=== PATIENT | male | born 1985 | race African-American/Black ===

== ENCOUNTER 2020-11-26 09:20 | Inpatient (IN) | payer MEDICAID, OTHER ==
[~2020-11-26] VITALS: Ht 165.1 cm; Wt 75.7 kg
[2020-11-26 10:45] LABS: BASOPHILS % 0.4 % (0.0-2.0); EOSINOPHILS % 0.1 % (0.0-5.0); HEMATOCRIT. 43.4 % (42.0-52.0); HEMOGLOBIN. 14.1 g/dL (14.0-18.0); LYMPHOCYTES % 15.2 % (20.0-50.0); MEAN CORPUSCULAR HEMOGLOBIN 35.9 pg (28.0-32.0); MEAN CORPUSCULAR VOLUME 110.2 fL (80.0-94.0); MEAN PLATELET VOLUME 8.8 fl (7.4-10.4); NEUTROPHILS % 78.3 % (40.0-76.0); PLATELET 252 x1000/uL (130-400); RED BLOOD CELL COUNT 3.94 mill/uL (4.7-6.1); RED CELL DISTRIBUTION WIDTH 14.7 % (11.6-14.6)
[2020-11-26] MEDS ORDERED: SODIUM CHLORIDE 0.9% 1,000 ML IV ONE (10:45)
[2020-11-26 10:46] LABS: CHLORIDE 105 mEq/L (98-107)
[2020-11-26 10:50] LABS: ETHANOL BLOOD < 10 mg/dL
[2020-11-26 11:38] LABS: PLATELET ESTIMATE NORMAL
[2020-11-26 12:18] LABS: CLARITY URINE CLEAR (CLEAR); COLOR URINE DARK YELLOW (YELLOW); KETONES URINE NEGATIVE (NEGATIVE); LEUKOCYTE ESTERASE URINE TRACE (NEGATIVE); NITRITE URINE NEGATIVE (NEGATIVE); OCCULT BLOOD URINE TRACE (NEGATIVE); PH URINE 5.5 (4.5-8.0); PROTEIN URINE 2+ (NEGATIVE); SPECIFIC GRAVITY URINE 1.025 (1.005-1.030)
[2020-11-26 12:28] LABS: INR 1.3; PARTIAL THROMBOPLASTIN TIME 24.8 sec (23.4-31.0)
[2020-11-26 12:36] LABS: *AMPHETAMINES SCREEN URINE NEGATIVE (NEGATIVE); *BARBITURATES SCREEN URINE NEGATIVE (NEGATIVE); *BENZODIAZEPINES SCREEN URINE NEGATIVE (NEGATIVE); *COCAINE SCREEN URINE PRESUMTIVE POSITIVE (NEGATIVE); METHADONE URINE SCREEN NEGATIVE (NEGATIVE); OPIATES URINE SCREEN NEGATIVE (NEGATIVE)
[2020-11-26 12:37] LABS: CANNABINOID URINE SCREEN PRESUMTIVE POSITIVE (NEGATIVE); PHENCYCLIDINE URINE SCREEN NEGATIVE (NEGATIVE)
[2020-11-26] MEDS ORDERED: FUROSEMIDE 20MG/2ML VIAL IVP ONE (13:00)
[2020-11-26] MEDS ORDERED: IOHEXOL-350 100 ML BOTTLE ONE (16:50)
[2020-11-26] MEDS ORDERED: CLONIDINE 0.1MG TABLET PO PRN (17:15)
[2020-11-26] MEDS ORDERED: ONDANSETRON HCL 4MG/2ML INJ IV PRN (17:15)
[2020-11-26] MEDS ORDERED: ACETAMINOPHEN 325MG TABLET PO PRN (17:15)
[2020-11-26] MEDS ORDERED: IPRATROPIUM/ALBUTEROL 0.5-3(2.5)MG/3ML NEB HHN PRN (17:15)
[2020-11-26] MEDS: ENOXAPARIN 40MG/0.4ML SYR SUBCUT SCH (17:26)
[2020-11-26] MEDS: DIPHENHYDRAMINE 50MG/ML VIAL IV PRN (23:06)
[2020-11-27] VITALS (11 sets, daily range): BP systolic 103–130; BP diastolic 66–101
[2020-11-27 06:27] LABS: BASOPHILS % 0.3 % (0.0-2.0); HEMATOCRIT. 37.6 % (42.0-52.0); HEMOGLOBIN. 12.5 g/dL (14.0-18.0); LYMPHOCYTES % 16.5 % (20.0-50.0); MEAN CORPUSCULAR HEMOGLOBIN 36.7 pg (28.0-32.0); MEAN PLATELET VOLUME 9.7 fl (7.4-10.4); MONOCYTES % 6.3 % (2.0-8.0); NEUTROPHILS % 76.9 % (40.0-76.0); PLATELET 208 x1000/uL (130-400); RED BLOOD CELL COUNT 3.42 mill/uL (4.7-6.1); RED CELL DISTRIBUTION WIDTH 14.4 % (11.6-14.6)
[2020-11-27 06:32] LABS: CHLORIDE 104 mEq/L (98-107)
[2020-11-27 06:43] LABS: LDL CHOLESTEROL 52 mg/dL (5-100)
[2020-11-27 06:44] LABS: HDL CHOLESTEROL 34 mg/dL (40-59)
[2020-11-27] MEDS ORDERED: PNEUMOCOCCAL 23-VAL P-SAC VAC 0.5 ML IM ONE (08:00)
[2020-11-27] MEDS: FUROSEMIDE 40MG/4ML VIAL IV SCH (08:48)
[2020-11-27] MEDS: DILTIAZEM HCL 30MG TABLET PO SCH ×3 (11:17→23:13)
[2020-11-27] MEDS: ASPIRIN 81MG EC TABLET PO SCH (11:17)
[2020-11-27] MEDS: NYSTATIN POWDER 15GM TOP SCH ×2 (15:56→23:18)
[2020-11-27] MEDS: ENOXAPARIN 40MG/0.4ML SYR SUBCUT SCH (17:19)
[2020-11-28] VITALS (12 sets, daily range): BP systolic 100–133; BP diastolic 67–100
[2020-11-28 05:11] LABS: NEISSERIA GONORRHOEAE NAA Negative (Negative)
[2020-11-28] MEDS: DILTIAZEM HCL 30MG TABLET PO SCH ×4 (06:22→23:29)
[2020-11-28 07:11] LABS: BASOPHILS % 0.2 % (0.0-2.0); EOSINOPHILS % 0.4 % (0.0-5.0); HEMATOCRIT. 40.8 % (42.0-52.0); HEMOGLOBIN. 13.6 g/dL (14.0-18.0); LYMPHOCYTES % 17.9 % (20.0-50.0); MEAN CORPUSCULAR HEMOGLOBIN 36.6 pg (28.0-32.0); MEAN CORPUSCULAR VOLUME 109.9 fL (80.0-94.0); MEAN PLATELET VOLUME 9.6 fl (7.4-10.4); MONOCYTES % 7.7 % (2.0-8.0); NEUTROPHILS % 73.8 % (40.0-76.0); PLATELET 212 x1000/uL (130-400); RED BLOOD CELL COUNT 3.71 mill/uL (4.7-6.1); RED CELL DISTRIBUTION WIDTH 14.6 % (11.6-14.6)
[2020-11-28 07:50] LABS: CHLORIDE 102 mEq/L (98-107)
[2020-11-28] MEDS: ASPIRIN 81MG EC TABLET PO SCH (08:29)
[2020-11-28] MEDS: FUROSEMIDE 40MG/4ML VIAL IV SCH (08:29)
[2020-11-28] MEDS: NYSTATIN POWDER 15GM TOP SCH ×3 (08:30→17:00)
[2020-11-28] MEDS: LISINOPRIL 2.5MG TABLET PO SCH (14:03)
[2020-11-28] MEDS: ENOXAPARIN 40MG/0.4ML SYR SUBCUT SCH (18:26)
[2020-11-28] MEDS: CARVEDILOL 3.125 MG TABLET PO SCH (21:14)
[2020-11-28] MEDS: GUAIFENESIN 200MG/10ML SUGAR FREE UDC PO SCH (23:30)
[2020-11-29] VITALS (10 sets, daily range): BP systolic 90–116; BP diastolic 58–84
[2020-11-29 05:53] LABS: BASOPHILS % 0.3 % (0.0-2.0); EOSINOPHILS % 0.2 % (0.0-5.0); HEMATOCRIT. 38.9 % (42.0-52.0); HEMOGLOBIN. 12.8 g/dL (14.0-18.0); LYMPHOCYTES % 14.9 % (20.0-50.0); MEAN CORPUSCULAR HEMOGLOBIN 36.1 pg (28.0-32.0); MEAN CORPUSCULAR VOLUME 109.4 fL (80.0-94.0); MEAN PLATELET VOLUME 9.8 fl (7.4-10.4); MONOCYTES % 5.4 % (2.0-8.0); NEUTROPHILS % 79.2 % (40.0-76.0); PLATELET 227 x1000/uL (130-400); RED BLOOD CELL COUNT 3.56 mill/uL (4.7-6.1); RED CELL DISTRIBUTION WIDTH 14.4 % (11.6-14.6)
[2020-11-29] MEDS: GUAIFENESIN 200MG/10ML SUGAR FREE UDC PO SCH ×4 (06:04→23:31)
[2020-11-29] MEDS: DILTIAZEM HCL 30MG TABLET PO SCH ×4 (06:04→23:35)
[2020-11-29 06:16] LABS: CHLORIDE 102 mEq/L (98-107)
[2020-11-29] MEDS: CARVEDILOL 3.125 MG TABLET PO SCH ×2 (08:26→21:02)
[2020-11-29] MEDS: LISINOPRIL 2.5MG TABLET PO SCH (08:26)
[2020-11-29] MEDS: FUROSEMIDE 40MG/4ML VIAL IV SCH (08:26)
[2020-11-29] MEDS: ASPIRIN 81MG EC TABLET PO SCH (08:27)
[2020-11-29] MEDS: NYSTATIN POWDER 15GM TOP SCH ×3 (11:46→17:50)
[2020-11-29] MEDS: ENOXAPARIN 40MG/0.4ML SYR SUBCUT SCH (17:51)
[2020-11-30] VITALS: BP 92/56
[2020-11-30 04:00] VITALS: BP 97/66
[2020-11-30] MEDS: DILTIAZEM HCL 30MG TABLET PO SCH ×3 (05:41→18:26)
[2020-11-30 06:01] LABS: CHLORIDE 101 mEq/L (98-107)
[2020-11-30 06:05] LABS: BASOPHILS % 0.2 % (0.0-2.0); EOSINOPHILS % 0.1 % (0.0-5.0); HEMATOCRIT. 38.5 % (42.0-52.0); HEMOGLOBIN. 12.9 g/dL (14.0-18.0); LYMPHOCYTES % 18.2 % (20.0-50.0); MEAN CORPUSCULAR HEMOGLOBIN 36.6 pg (28.0-32.0); MEAN CORPUSCULAR VOLUME 109.1 fL (80.0-94.0); MEAN PLATELET VOLUME 9.7 fl (7.4-10.4); MONOCYTES % 6.5 % (2.0-8.0); PLATELET 224 x1000/uL (130-400); RED BLOOD CELL COUNT 3.53 mill/uL (4.7-6.1); RED CELL DISTRIBUTION WIDTH 14.3 % (11.6-14.6)
[2020-11-30] MEDS: GUAIFENESIN 200MG/10ML SUGAR FREE UDC PO SCH ×3 (06:05→18:25)
[2020-11-30 08:00] VITALS: BP 99/72
[2020-11-30] MEDS: LISINOPRIL 2.5MG TABLET PO SCH (09:00)
[2020-11-30] MEDS: CARVEDILOL 3.125 MG TABLET PO SCH ×2 (09:00→21:00)
[2020-11-30] MEDS: NYSTATIN POWDER 15GM TOP SCH ×3 (09:00→17:00)
[2020-11-30 12:00] VITALS: BP 104/81
[2020-11-30] MEDS: ASPIRIN 81MG EC TABLET PO SCH (13:18)
[2020-11-30] MEDS: FUROSEMIDE 40MG/4ML VIAL IV SCH (13:18)
[2020-11-30 16:34] VITALS: BP 119/78
[2020-11-30] MEDS: ENOXAPARIN 40MG/0.4ML SYR SUBCUT SCH (18:25)
[2020-11-30 20:00] VITALS: BP 109/67
[2020-11-30] MEDS: DIPHENHYDRAMINE 50MG/ML VIAL IV PRN (22:21)
[2020-12-01] VITALS: BP 123/73
[2020-12-01] MEDS: GUAIFENESIN 200MG/10ML SUGAR FREE UDC PO SCH ×3 (00:24→13:13)
[2020-12-01] MEDS: DILTIAZEM HCL 30MG TABLET PO SCH ×3 (00:24→12:00)
[2020-12-01 04:00] VITALS: BP 107/71
[2020-12-01 08:00] VITALS: BP 121/35
[2020-12-01] MEDS: LISINOPRIL 2.5MG TABLET PO SCH ×2 (09:00→10:34)
[2020-12-01] MEDS: CARVEDILOL 3.125 MG TABLET PO SCH ×2 (09:00→10:34)
[2020-12-01] MEDS: FUROSEMIDE 40MG/4ML VIAL IV SCH (10:21)
[2020-12-01] MEDS: NYSTATIN POWDER 15GM TOP SCH ×3 (10:22→17:00)
[2020-12-01] MEDS: ASPIRIN 81MG EC TABLET PO SCH (10:39)
[2020-12-01 12:00] VITALS: BP 101/74
[2020-12-01] MEDS ORDERED: LISI2.5T47 PO (13:27)
[2020-12-01] MEDS ORDERED: DILT120C88 MT (13:27)
[2020-12-01] MEDS ORDERED: FURO40TA5 MT (13:27)
[2020-12-01] MEDS ORDERED: ASPI-1406 MT (13:27)
[2020-12-01 15:09] VITALS: BP 102/59
[2020-12-01 16:00] VITALS: BP 97/75
== END 2020-12-01 17:35 | disposition home or self-care (01) | DRG 194 ==
LOC: ER 09:20 → 8WST 16:24 → ENRESERV 20:27 → 5EST 11-27 03:50
PROVIDERS: ADMIT Internal Medicine; ATTEND Internal Medicine
DX: I11.0 Hypertensive heart disease with heart failure (principal); J96.00 Acute respiratory failure, unspecified whether with hypoxia or hypercapnia; E43 Unspecified severe protein-calorie malnutrition; E87.2 Acidosis; I27.81 Cor pulmonale (chronic); I31.3 Pericardial effusion (noninflammatory); K76.1 Chronic passive congestion of liver; B36.9 Superficial mycosis, unspecified; I50.23 Acute on chronic systolic (congestive) heart failure; F14.10 Cocaine abuse, uncomplicated; I50.82 Biventricular heart failure; D53.9 Nutritional anemia, unspecified; I42.0 Dilated cardiomyopathy; L89.899 Pressure ulcer of other site, unspecified stage; F17.210 Nicotine dependence, cigarettes, uncomplicated; D72.829 Elevated white blood cell count, unspecified; I34.0 Nonrheumatic mitral (valve) insufficiency; F12.10 Cannabis abuse, uncomplicated; E02 Subclinical iodine-deficiency hypothyroidism; Z71.6 Tobacco abuse counseling; Z68.27 Body mass index [BMI] 27.0-27.9, adult
CPT/HCPCS: 36415; 71045; 71275; 76700; 80048; 80053; 80061; 80076; 80305; 80320; 81003; 82040; 83605; 83735; 83880; 84134; 84443; 84484; 85025; 87491; 87591; 90732; 93005; 93306; 93970; 99285; J1200; J1650; J1940; J7030; Q9967; G0480